=== PATIENT | male | born 1940 | race Hispanic/Latino ===

== ENCOUNTER → 2020-03-13 | Day surgery (SDC) | payer MEDICARE, OTHER ==
[2020-03-08 10:30] LABS: BASOPHILS % 0.4 % (0.0-1.0); EOSINOPHILS # (AUTO) 0.2 (0.0-0.4); EOSINOPHILS % 2.6 % (0.0-6.0); HEMATOCRIT 43.4 % (38.2-49.6); HEMOGLOBIN 14.4 g/dL (14.0-18.0); LYMPHOCYTES # (AUTO) 1.8 (1.0-3.2); LYMPHOCYTES % 24.8 % (18.0-39.1); MEAN CORPUSCULAR HEMOGLOBIN 32.4 pg (28-32); MEAN CORPUSCULAR HGB CONC 33.2 g/dL (31-35); MEAN CORPUSCULAR VOLUME 97.5 fL (81-99); MONOCYTES # (AUTO) 0.6 (0.2-0.8); MONOCYTES % 7.6 % (4.4-11.3); NEUTROPHILS # (AUTO) 4.7 (2.1-6.9); NEUTROPHILS % 64.2 % (38.7-80.0); PLATELET COUNT 179 x10e3/uL (140-360); RED BLOOD COUNT 4.45 x10e6/uL (4.3-5.7); RED CELL DISTRIBUTION WIDTH 13.1 % (11.7-14.4)
[2020-03-08 11:03] LABS: ALBUMIN 3.9 g/dL (3.5-5.0); ALBUMIN/GLOBULIN RATIO 1.5 (0.8-2.0); ANION GAP 14.4 mmol/L (8-16); CALCIUM 8.9 mg/dL (8.4-10.2); CREATININE, SERUM 1.26 mg/dL (0.72-1.25); POTASSIUM 4.4 mmol/L (3.5-5.1)
[~2020-03-13] VITALS: Ht 180.3 cm; Wt 108.0 kg
[2020-03-13] VITALS (8 sets, daily range): BP systolic 94–145; BP diastolic 61–79
[~2020-03-13] MED LIST: ALPRAZOLAM 0.5 MG TAB ONE; AMLODIPINE BESYL5 MG PO; ATORVASTATIN CA10 MG PO; DIPHENHYDRAMINE HCL 25 MG CAP ONE; FENTANYL CITRATE/PF 100MCG/2 ML INJ ONE; HEPARIN SOD/SOD CHLORIDE 2,000 ML ONE; IOPAMIDOL 370 MG/ML 200 ML INFUS..BTL INJ ONE; LIDOCAINE HCL 2% LOCAL 20 ML VIAL ONE; LOSARTAN POTAS100 MG PO; METFORMIN HCL500 MG PO; METOPROLOL TAR100 MG PO; MIDAZOLAM HCL 2 MG/2 ML VIAL ONE; SODIUM CHLORIDE 0.9% 1000ML 1,000 ML ONE; WARFARIN SODIUM3 MG PO
--- NOTE | 2020-03-13 09:32 | NUR ---
0932Received pt to room#8,bedside report received from Jesus JEFFREY. Alert oriented and appropriate, PERRLA, respirations even and unlabored to room air. Pulses x4 extremities equal and strong. Pedal pulses PT/DP X4 and marked. Cap fill brisk < 3 sec. Rt Tr band site stable No gross issues pain,pallor pressure or dysrhythmia, Air release at 1030am. Skin warm and dry integrity appears D/I. IV 20g to left hand, presents healthy w/o s/s of infiltration or complaint. Abdomen soft and supple. pt offered toileting, denies need to urinate or defecate. No personal affects with patient. Family at bedside. Pt and family verbalizes understanding of POC. Currently w/o complaint of pain or need. ds/rn
--- NOTE | 2020-03-13 10:30 | NUR ---
1039 Addendum: 03/13/20 at 1552 by Vivian Batres RN 1039 please correct for 1030 documentation. Compression removal: Initial Cuff volume 13 cc 1030 -3cc Removed No hematoma/bleeding noted with normal neurovascular function. 1045 -5cc Removed No hematoma/ bleeding noted with normal neurovascular function. 1100 -5cc Removed No hematoma/bleeding noted with normal neurovascular function. Air removal completed. Stasis achieved sterile 2x2,Tegaderm, Coban dressing No hematoma, bleeding noted with normal neurovascular function. Ds/Rn
--- NOTE | 2020-03-13 10:43 | Operative Report ---
DATE OF PROCEDURE: 03/13/2020 SURGEON: Juancarlos Pina MD INDICATION: Coronary artery disease, angina with abnormal stress test. PROCEDURES PERFORMED: 1. Ultrasound-guided access in the right radial artery with sheath placement. 2. Conscious sedation, 35 minutes. 3. Left heart catheterization, selective coronary angiography. 4. Deployment of right wrist TR band. COMPLICATIONS: None. RECOMMENDATIONS: Medical therapy versus coronary artery bypass surgery. DESCRIPTION OF PROCEDURE: Access obtained in the right radial artery using ultrasound guidance. A 5-[place] sheath was placed. Coronary angiography demonstrated heavily-calcified coronary vessel, 70% distal left main stenosis, ostial left anterior descending artery 70% stenosis, mid left anterior descending artery 70%. Circumflex had moderate disease. Right coronary artery proximal 70%, distal 50% heavily calcified vessel. Left internal mammary artery was widely patent. 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 Right wrist TR band applied. The patient discharged home. MD LAITH Neal/MODL /[id number]
--- NOTE | 2020-03-13 11:30 | NUR ---
1130Pt meets DC criteria. Rt Tr assessed for s/s of complication and presence of hematoma. Skin warm, dry, no discolor, and pulses present. IV removed from D/I. Distal tip appears intact. VS WNL. Pt denies pain, sob, or need at this time. Family at Bs. Review of discharge paperwork and follow up instructions. verbalized understanding. Pt to wheelchair and transported to front of hospital. Transferred to private vehicle under own strength w/o incident with DC paperwork in hand. -ds/rn
== END | disposition home or self-care (01) ==
LOC: CATH LAB 07:01
PROVIDERS: ATTEND Internal Medicine Interventional Cardiology
DX: I25.118 Atherosclerotic heart disease of native coronary artery with other forms of angina pectoris (principal); I10 Essential (primary) hypertension; I48.21 Permanent atrial fibrillation; E11.9 Type 2 diabetes mellitus without complications; Z79.01 Long term (current) use of anticoagulants; Z79.84 Long term (current) use of oral hypoglycemic drugs; Z01.812 Encounter for preprocedural laboratory examination; Z11.59 Encounter for screening for other viral diseases
CPT/HCPCS: 36415; 76937; 80053; 85025; 93454; C1769 ×2; C1887; J2001; J2250; J3010; J7030; Q9967; U0002; 99152